=== PATIENT | male | born 1985 | race Two or more races ===

== ENCOUNTER 2024-11-16 20:15 | Emergency (ER) | payer MEDICARE ==
[~2024-11-16] VITALS: Ht 185.4 cm; Wt 84.5 kg
[2024-11-16 20:52] VITALS: BP 112/97; O2SAT 97
== END 2024-11-16 20:52 | disposition home or self-care (01) ==
LOC: ER 20:15
DX: L03.211 Cellulitis of face (principal); J34.0 Abscess, furuncle and carbuncle of nose; F12.90 Cannabis use, unspecified, uncomplicated; F15.10 Other stimulant abuse, uncomplicated; F17.210 Nicotine dependence, cigarettes, uncomplicated; F41.9 Anxiety disorder, unspecified; J45.909 Unspecified asthma, uncomplicated; Z59.00 Homelessness unspecified
CPT/HCPCS: A4606; A4663

== ENCOUNTER 2025-06-21 22:11 | Emergency (ER) | payer MEDICARE ==
[~2025-06-21] VITALS: Ht 185.4 cm; Wt 81.6 kg
[2025-06-21 22:16] VITALS: BP 123/98
[2025-06-21] MEDS ORDERED: IPRATROPIUM BROMIDE 0.5 MG/2.5 ML NEBU ONE (23:03)
[2025-06-21] MEDS ORDERED: ALBUTEROL SULFATE 2.5 MG/3 ML NEBU ONE (23:03)
[2025-06-21 23:09] VITALS: O2SAT 98
[2025-06-21] MEDS: ALBUTEROL SULFATE 2.5 MG/3 ML NEBU NEB ONE (23:09)
[2025-06-21] MEDS: IPRATROPIUM BROMIDE 0.5 MG/2.5 ML NEBU NEB ONE (23:09)
[2025-06-21 23:19] VITALS: O2SAT 99
[2025-06-21] MEDS ORDERED: ALBU18HF2 INH (23:55)
[2025-06-21] MEDS ORDERED: PRED20TA PO (23:55)
[2025-06-22 00:01] VITALS: BP 121/87; TEMP 98; O2SAT 98
== END 2025-06-22 00:01 | disposition home or self-care (01) ==
LOC: ER 22:11
DX: J45.901 Unspecified asthma with (acute) exacerbation (principal); R07.89 Other chest pain; F17.210 Nicotine dependence, cigarettes, uncomplicated; Z59.00 Homelessness unspecified; Z79.52 Long term (current) use of systemic steroids
CPT/HCPCS: 71045; A4606; A4663; J3590; J7512